=== PATIENT | male | born 1995 | race African-American/Black ===

== ENCOUNTER 2016-08-16 12:02 | Emergency (ER) | payer OTHER ==
[2016-08-16 12:07] VITALS: BP 137/70; PULSE 98; TEMP 97.4; BMI 22.9
[2016-08-16] MEDS ORDERED: MAGNESIUM SULF 50% (8.12 MEQ/2 ML-1 GM VIAL) ONE (12:16)
[2016-08-16] MEDS ORDERED: methylPREDNISolone NA SUCC 125 MG/2 ML VIAL ONE (12:16)
[2016-08-16] MEDS ORDERED: ALBUTEROL SO4 2.5/IPRATROPIUM 0.5 INH SOL 3 ML VIAL.NEB. NEB ONE (12:19)
--- NOTE | 2016-08-16 12:31 | PDOC ---
History of Present Illness - General History Source: Patient Exam Limitations: No Limitations - History of Present Illness Initial Comments: 08/16/16 12:37 The patient is a 21 year old male with significant past medical history of asthma who presents to the emergency department with shortness of breath since this morning. The patient was out shoveling for several hours when he suddenly had chest pressure pain in his chest and shortness of breath. He went to one knee to help alleviate some of his SOB and he fell over. He denies any head trauma or other injuries from the fall. The patient was given multiple treatments in the ambulance on the way to the ER and states he is feeling much better. He currently denies any SOB or chest pain. No fevers or chills. <Isabell Wright - Last Filed: 08/16/16 12:37> <Karen Millan - Last Filed: 08/18/16 07:40> - General Chief Complaint: Asthma Stated Complaint: Asthma Time Seen by Provider: 08/16/16 12:20 Past History <Isabell Wright - Last Filed: 08/16/16 12:37> - Past Medical History Asthma: Yes GI Disorders: Yes (ACID REFLUX.) - Immunization History Immunization Up to Date: Yes - Psycho/Social/Smoking Cessation Hx Anxiety: No Suicidal Ideation: No Smoking History: Never smoked Information on smoking cessation initiated: No Hx Alcohol Use: No Drug/Substance Use Hx: No Substance Use Type: None <Karen Millan - Last Filed: 08/18/16 07:40> - Past Medical History Allergies/Adverse Reactions: Allergies Allergy/AdvReac Type Severity Reaction Status Date / Time No Known Allergies Allergy Verified 08/16/16 12:08 Home Medications: Ambulatory Orders Albuterol Sulfate Inhaler - [Ventolin HFA Inhaler -] 1 - 2 inh PO QID #1 inhaler 08/16/16 Albuterol Sulfate Inhaler - [Ventolin Hfa Inhaler -] 1 - 2 inh PO QID PRN Prednisone [Deltasone -] 40 mg PO DAILY #6 tablet 08/16/16 Review of Systems - Review of Systems Able to Perform ROS?: Yes Comments:: 08/16/16 12:37 GENERAL/CONSTITUTIONAL: No fever or chills. No weakness. HEAD, EYES, EARS, NOSE AND THROAT: No change in vision. No ear pain or discharge. No sore throat. CARDIOVASCULAR: +Chest pain, +SOB. RESPIRATORY: No cough, wheezing, or hemoptysis. GASTROINTESTINAL: No nausea, vomiting, diarrhea or constipation. GENITOURINARY: No dysuria, frequency, or change in urination. MUSCULOSKELETAL: No joint or muscle swelling or pain. No neck or back pain. SKIN: No rash NEUROLOGIC: No headache, vertigo, loss of consciousness, or change in strength/ sensation. ENDOCRINE: No increased thirst. No abnormal weight change. HEMATOLOGIC/LYMPHATIC: No anemia, easy bleeding, or history of blood clots. ALLERGIC/IMMUNOLOGIC: No hives or skin allergy. <Isabell Wright - Last Filed: 08/16/16 12:37> *Physical Exam - Vital Signs Last Vital Signs Temp Pulse Resp BP Pulse Ox 97.4 F L 98 H 18 137/70 100 08/16/16 12:03 08/16/16 12:03 08/16/16 12:03 08/16/16 12:03 08/16/16 12:03 - Physical Exam Comments: 08/16/16 12:38 GENERAL: Awake, alert, and fully oriented, in no acute distress HEAD: No signs of trauma EYES: PERRLA, EOMI, sclera anicteric, conjunctiva clear ENT: Auricles normal inspection, hearing grossly normal, nares patent, oropharynx clear without exudates. Moist mucosa NECK: Normal ROM, supple, no lymphadenopathy, JVD, or masses LUNGS: Breath sounds equal, clear to auscultation bilaterally. No wheezes, and no crackles HEART: Regular rate and rhythm, normal S1 and S2, no murmurs, rubs or gallops ABDOMEN: Soft, nontender, normoactive bowel sounds. No guarding, no rebound. No masses EXTREMITIES: Normal range of motion, no edema. No clubbing or cyanosis. No cords, erythema, or tenderness NEUROLOGICAL: Cranial nerves II through XII grossly intact. Normal speech, normal gait SKIN: Warm, Dry, normal turgor, no rashes or lesions noted. <KyleIsabell - Last Filed: 08/16/16 12:37> - Vital Signs Last Vital Signs Temp Pulse Resp BP Pulse Ox 97.4 F L 98 H 18 137/70 100 08/16/16 12:03 08/16/16 12:03 08/16/16 12:03 08/16/16 12:03 08/16/16 12:03 <Karen Millan - Last Filed: 08/18/16 07:40> Medical Decision Making - Medical Decision Making Patient's symptoms resolved with solu-medrol and duonebs given by EMS prior to arrival. Lungs are clear. Likely cold-induced vs exercise-induced asthma. Stable for DC home. <Karen Millan - Last Filed: 08/18/16 07:40> *DC/Admit/Observation/Transfer - Attestations Scribe Attestion: 08/16/16 12:38 Documentation prepared by Isabell Wright, acting as medical operations supervisor for Karen Millan MD. <Isabell Wright - Last Filed: 08/16/16 12:37> - Discharge Dispostion Admit: No <Karen Millan - Last Filed: 08/18/16 07:40> Diagnosis at time of Disposition: Asthma attack - Discharge Dispostion Disposition: HOME Condition at time of disposition: Improved - Prescriptions Prescriptions: Prednisone [Deltasone -] 40 mg PO DAILY #6 tablet Albuterol Sulfate Inhaler - [Ventolin HFA Inhaler -] 1 - 2 inh PO QID #1 inhaler - Referrals Referrals: Miguelangel Benjamin [Primary Care Provider] - - Patient Instructions Printed Discharge Instructions: DI for Asthma -- Adult
== END 2016-08-16 12:39 | disposition home or self-care (01) ==
LOC: JER 12:02
DX: J45.901 Unspecified asthma with (acute) exacerbation (principal); K21.9 Gastro-esophageal reflux disease without esophagitis
CPT/HCPCS: 99283-25

== ENCOUNTER 2016-10-02 10:19 | Emergency (ER) | payer BC, OTHER ==
[2016-10-02 10:29] VITALS: BP 126/72; PULSE 53; TEMP 98.1; BMI 24.4
--- NOTE | 2016-10-02 11:19 | PDOC ---
History of Present Illness - General Chief Complaint: Asthma Stated Complaint: SOB,ASTHMA EXACERBATION Time Seen by Provider: 10/02/16 11:13 History Source: Patient Exam Limitations: No Limitations - History of Present Illness Initial Comments: CHIEF COMPLAINT: 21 y/o afebrile male with PMH asthma c/o shortness of breath. HISTORY OF PRESENT ILLNESS: The patient states he ran out of his asthma inhaler yesterday and has some SOB today. He would like a treatment and an inhaler sent to his pharmacy. He would also like to be checked for STDs, although he has no symptoms. Vital signs on arrival are within normal limits. REVIEW OF SYSTEMS: GENERAL/CONSTITUTIONAL: No fever/chills. No weakness. No weight change. HEAD, EYES, EARS, NOSE AND THROAT: No change in vision. No ear pain or discharge. No sore throat. CARDIOVASCULAR: +SOB. No chest pain. RESPIRATORY: No cough, wheezing, or hemoptysis. GASTROINTESTINAL: No abd pain, nausea, vomiting, diarrhea. GENITOURINARY: No dysuria, frequency, or change in urination. MUSCULOSKELETAL: No joint or muscle swelling or pain. No neck or back pain. SKIN: No rash or easy bruising. NEUROLOGIC: No headache, vertigo, loss of consciousness, or loss of sensation. PHYSICAL EXAM: GENERAL: The patient is awake, alert, and fully oriented, in no acute distress. HEAD: Normal with no signs of trauma. ENT: Pupils equal, round and reactive to light, extraocular movements intact, sclera anicteric, conjunctiva clear. Neck supple. LUNGS: Clear to auscultation bilaterally. Normal excursion. No respiratory distress or use of accessory muscles. CV: RRR, S1/S2, no MRG. Cap refill < 2 sec. ABDOMEN: Soft, non-distended, non-tender even to deep palpation, no hepatomegaly or splenomegaly, no masses. EXTREMITIES: Normal range of motion, no edema. NEUROLOGICAL: Normal speech, normal gait. CN II-XII grossly intact. PSYCH: Normal mood, normal affect. SKIN: Warm, dry, normal turgor, no rashes or lesions noted. Past History - Past Medical History Allergies/Adverse Reactions: Allergies Allergy/AdvReac Type Severity Reaction Status Date / Time No Known Allergies Allergy Verified 08/16/16 12:08 Home Medications: Ambulatory Orders Albuterol Sulfate Inhaler - [Ventolin HFA Inhaler -] 1 - 2 inh PO Q4H #1 inhaler 10/02/16 Asthma: Yes GI Disorders: Yes (ACID REFLUX.) - Immunization History Immunization Up to Date: Yes - Psycho/Social/Smoking Cessation Hx Anxiety: No Suicidal Ideation: No Smoking History: Never smoked Hx Alcohol Use: No Drug/Substance Use Hx: No Substance Use Type: None *Physical Exam - Vital Signs Last Vital Signs Temp Pulse Resp BP Pulse Ox 98.1 F 53 L 19 126/72 97 10/02/16 10:25 10/02/16 10:25 10/02/16 10:25 10/02/16 10:25 10/02/16 10:25 Medical Decision Making - Medical Decision Making A/P: 21 y/o afebrile male with SOB after running out of his albuterol inhaler yesterday. He is also here for STD check. Plan is as follows: 1. Duoneb 2. GC/chlamydia Will send rx for albuterol inhaler to pharmacy. Informed the patient we will call him with STD results in 48-72 hours. Pt instructed to refrain from sexual intercourse until results are back and return to the ER with any worsening or concerning symptoms. The patient verbalizes understanding of all instructions, has no further questions and is awaiting discharge. *DC/Admit/Observation/Transfer Diagnosis at time of Disposition: Screen for STD (sexually transmitted disease) Asthma Qualifiers: Asthma severity: unspecified severity Asthma complication type: uncomplicated Qualified Code(s): J45.909 - Unspecified asthma, uncomplicated - Discharge Dispostion Disposition: HOME Condition at time of disposition: Good - Patient Instructions Printed Discharge Instructions: Asthma -- Adult, How to Detect and Treat STDs Additional Instructions: Discharge Instructions: -Use albuterol inhaler as prescribed for asthma symptoms -Someone from the ER will call you in 48-72 hours with the results of your STD tests; you should not have sex until you receive results -Return to the ER with any worsening or concerning symptoms.
[2016-10-02] MEDS ORDERED: ALBUTEROL SO4 2.5/IPRATROPIUM 0.5 INH SOL 3 ML VIAL.NEB. NEB ONE ×2 (11:24→11:32)
== END 2016-10-02 11:58 | disposition home or self-care (01) ==
LOC: JERFT 10:19
PROC: 3E0F7GC Introduction of Other Therapeutic Substance into Respiratory Tract, Via Natural or Artificial Opening (ICD-10-PCS; principal; 2016-10-02)
DX: J45.909 Unspecified asthma, uncomplicated (principal); Z11.3 Encounter for screening for infections with a predominantly sexual mode of transmission
CPT/HCPCS: 36415; 87491; 87591; 99281-25

== ENCOUNTER 2017-04-23 11:26 | Emergency (ER) | payer OTHER, BC ==
[2017-04-23 11:58] VITALS: BP 114/71; PULSE 66; TEMP 98.4; BMI 23.5
[2017-04-23] MEDS ORDERED: KETOROLAC TROMETHAMINE 60 MG/2 ML VIAL IM ONE (13:13)
[2017-04-23] MEDS ORDERED: KETOROLAC TROMETHAMINE 60 MG/2 ML VIAL ONE (13:15)
--- NOTE | 2017-04-23 13:35 | PDOC ---
History of Present Illness - General Chief Complaint: Pain Stated Complaint: NECK/BACK PAIN Time Seen by Provider: 04/23/17 12:53 - History of Present Illness Initial Comments: 04/23/17 13:29 CHIEF COMPLAINT: back pain HISTORY OF PRESENT ILLNESS: 22 yo M with hx of asthma and GERD presents to fast Appetise with pain to lower back s/p injury at work. Patient states he was "throwing out heavy garbage bags" while working and felt that he pulled something in his back. He denies any loss of sensation to his lower extremities or any loss of bowel or bladder function. PAST MEDICAL HISTORY: Denies past medical history FAMILY HISTORY: Denies SOCIAL HISTORY: Denies tobacco, alcohol, illicit drug use. SURGICAL HISTORY: Denies ALLERGIES: No known drug allergies REVIEW OF SYSTEMS General/Constitutional: Denies fever or chills. Denies weakness, weight change. HEENT: Denies change in vision. Denies ear pain or discharge. Denies sore throat. Cardiovascular: Denies chest pain or shortness of breath. Respiratory: Denies cough, wheezing, or hemoptysis. Gastrointestinal: Denies nausea, vomiting, diarrhea or constipation. Denies rectal bleeding. Genitourinary: Denies dysuria, frequency, or change in urination. Musculoskeletal: Mid lower back pain. Denies joint or muscle swelling or pain. Skin: Denies rash or easy bruising. Neurologic: Denies headache, vertigo, loss of consciousness, or loss of sensation. PHYSICAL EXAM General Appearance: Well-appearing, appropriately dressed. No apparent distress. HEENT: EOMI, PERRLA. No conjunctival pallor. No photophobia, scleral icterus. Respiratory/Chest: Lungs CTAB. Cardiovascular: RRR. S1, S2. Gastrointestinal/Abdominal: Normal bowel sounds. Abdomen soft, non-distended. No tenderness or rebound tenderness. Musculoskeletal/Extremities: Normal inspection. FROM of all extremities, normal capillary refill. Pelvis Stable. No CVA tenderness. No tenderness to extremities, pedal edema, swelling, erythema or deformity. Integumentary: Appropriate color, dry, warm. No cyanosis, erythema, jaundice or rash Neurologic: antisqueak filler II-XII intact. Fully oriented, alert. Appropriate mood/affect. Motor strength 5/5. No appreciable EOM palsy, facial droop or sensory deficit. Past History - Past Medical History Allergies/Adverse Reactions: Allergies Allergy/AdvReac Type Severity Reaction Status Date / Time No Known Allergies Allergy Verified 04/23/17 11:54 Home Medications: Ambulatory Orders Cyclobenzaprine HCl [Flexeril -] 10 mg PO HS #7 tablet 04/23/17 Naproxen [Naprosyn -] 250 mg PO BID #14 tablet 04/23/17 Asthma: Yes COPD: No GI Disorders: Yes (ACID REFLUX.) - Immunization History Immunization Up to Date: Yes - Suicide/Smoking/Psychosocial Hx Smoking History: Never smoked Information on smoking cessation initiated: No Hx Alcohol Use: No Drug/Substance Use Hx: No Substance Use Type: None *Physical Exam - Vital Signs Last Vital Signs Temp Pulse Resp BP Pulse Ox 98.4 F 66 18 114/71 100 04/23/17 11:55 04/23/17 11:55 04/23/17 11:55 04/23/17 11:55 04/23/17 11:55 ED Treatment Course - Medications Given in the ED: ED Medications Discontinued Medications Generic Name Dose Route Start Last Admin Trade Name Warren PRN Reason Stop Dose Admin Ketorolac Tromethamine 60 mg 04/23/17 13:13 04/23/17 13:18 Toradol Injection - IM 04/23/17 13:14 60 mg ONCE ONE Administration Medical Decision Making - Medical Decision Making 04/23/17 13:33 22 yo M with hx of asthma and GERD presents to [facility] with pain to lower back s/p injury at work. VSS. Patient is well-appearing with normal gait, sensory discrimination intact to all extremities. -60 mg Toradol Patient reevaluated after administration of medication. -naproxen, cyclobenzaprine rxs sent to pharm Advised patient to take medication as prescribed and follow up with orthopedics if symptoms persist past 3-5 days. Advised patient of signs and symptoms for return to ED. Patient verbalized understanding and agrees to plan. *DC/Admit/Observation/Transfer Diagnosis at time of Disposition: Back pain Qualifiers: Back pain location: low back pain Chronicity: acute Back pain laterality: midline Sciatica presence: without sciatica Qualified Code(s): M54.5 - Low back pain - Discharge Dispostion Disposition: HOME Condition at time of disposition: Stable Admit: No - Prescriptions Prescriptions: Cyclobenzaprine HCl [Flexeril -] 10 mg PO HS #7 tablet Naproxen [Naprosyn -] 250 mg PO BID #14 tablet - Referrals Referrals: Jim Palacios MD [Primary Care Provider] - - Patient Instructions Printed Discharge Instructions: DI for Low Back Pain Additional Instructions: Please take medications as prescribed; as discussed, do NOT drive, drink alcohol or operate machinery while taking cyclobenzaprine. Follow up with orthopedics if your symptoms persist past 3-5 days. If you develop any loss of sensation to your legs, any loss of bowel or bladder function, or any new or worsening symptoms, please return to the ER. - Post Discharge Activity Forms/Work/School Notes: Back to Work
== END 2017-04-23 13:40 | disposition home or self-care (01) ==
LOC: JERFT 11:26
PROC: 3E0233Z Introduction of Anti-inflammatory into Muscle, Percutaneous Approach (ICD-10-PCS; principal; 2017-04-23)
DX: M54.5 Low back pain (principal)
CPT/HCPCS: 99281-25

== ENCOUNTER 2020-02-06 10:47 | Emergency (ER) | payer OTHER ==
[2020-02-06 10:51] VITALS: BP 109/58; PULSE 74; TEMP 98.3; BMI 25.2
--- NOTE | 2020-02-06 11:11 | PDOC ---
History of Present Illness - General Chief Complaint: Eye Problem Stated Complaint: LFT EYE INJURY Time Seen by Provider: 02/06/20 11:02 History Source: Patient Exam Limitations: No Limitations - History of Present Illness Initial Comments: 02/06/20 11:07 24-year-old male presents to ED with irritation to his left eye since yesterday. 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 Patient states eyes now red and feels itchy. Patient states has been using Clear Eyes with no improvement. Patient also requesting to be tested for strep since his son was just diagnosed and has mild irritation with swallowing. Patient has no other complaints patient has no medical history. Is this a multiple visit Asthma Patient?: No Timing/Duration: 24 hours Severity: mild Associated Symptoms: reports: other Past History - Travel History Traveled outside of the country in the last 30 days: No Close contact w/someone who was outside of country & ill: No - Medical History Allergies/Adverse Reactions: Allergies Allergy/AdvReac Type Severity Reaction Status Date / Time No Known Allergies Allergy Verified 04/23/17 11:54 Home Medications: Ambulatory Orders Cyclobenzaprine HCl [Flexeril -] 10 mg PO HS #7 tablet 04/23/17 Naproxen [Naprosyn -] 250 mg PO BID #14 tablet 04/23/17 Erythromycin 0.5% Eye Ointment [Erythromycin 0.5% Eye Ointment -] 1 applic OS BID #1 tube 02/06/20 Asthma: Yes COPD: No GI Disorders: Yes (ACID REFLUX.) - Immunization History Immunization Up to Date: Yes - Psycho-Social/Smoking History Lives with/in: spouse/SO Smoking History: Never smoked - Substance Abuse Hx (Audit-C & DAST Scrn) How often the patient has a drink containing alcohol: Never Score: In Men: 4 or > Positive; In Women: 3 or > Positive: 0 Screen Result (Pos requires Nsg. Audit-10AR): Negative In the last yr the pt used illegal drug/Rx for NonMed reason: No Score: Yes response is considered Positive: 0 Screen Result (Positive result requires Nsg. DAST-10): Negative Review of Systems - Review of Systems Able to Perform ROS?: No Is the patient limited O[place]i proficient: No Constitutional: No: Symptoms Reported HEENTM: Yes: Eye Pain, Throat Pain Respiratory: No: Symptoms reported Cardiac (ROS): No: Symptoms Reported ABD/GI: No: Symptoms Reported : No: Symptoms Reported Musculoskeletal: No: Symptoms Reported Integumentary: No: Symptoms Reported Neurological: No: Headache *Physical Exam - Vital Signs Last Vital Signs Temp Pulse Resp BP Pulse Ox 98.3 F 74 20 109/58 L 100 02/06/20 10:48 02/06/20 10:48 02/06/20 10:48 02/06/20 10:48 02/06/20 10:48 - Physical Exam General Appearance: Yes: Nourished, Appropriately Dressed. No: Apparent Distress HEENT: positive: EOMI, ANCELMO, TMs Normal, Pharynx Normal, Other (Noted erythema to left sclera conjunctiva intact.) Neck: positive: Supple Respiratory/Chest: negative: Respiratory Distress Gastrointestinal/Abdominal: negative: Distended Extremity: positive: Normal Inspection Integumentary: positive: Normal Color Neurologic: positive: Motor Strength 5/5 (Ambulatory) Medical Decision Making - Medical Decision Making 02/06/20 11:09 Chief complaint: Left eye redness and itching since yesterday after having fluids land in his eye. Exam: Patient with erythema to left sclera no erythema to posterior soft palate. Plan: Strep ordered will discharge home with erythromycin ointment for his eye 02/06/20 19:02 Laboratory Tests 02/06/20 11:00 Group A Strep Rapid Positive Pt ordered for amoxicillin Discharge - Discharge Information Problems reviewed: Yes Clinical Impression/Diagnosis: Irritation of left eye Condition: Good Disposition: HOME - Additional Discharge Information Prescriptions: Erythromycin 0.5% Eye Ointment [Erythromycin 0.5% Eye Ointment -] 1 applic OS BID #1 tube - Follow up/Referral Referrals: Max Austin MD [Primary Care Provider] - - Patient Discharge Instructions Patient Printed Discharge Instructions: DI for Conjunctivitis Additional Instructions: Please do not place anything into your eye except for the ointment I have prescribed. Do not rub area and wash hands frequently. You will be notified if your strep is positive. - Post Discharge Activity Work/Back to School Note: Back to Work
== END 2020-02-06 11:15 | disposition home or self-care (01) ==
LOC: JERFT 10:47
DX: H57.12 Ocular pain, left eye (principal)
CPT/HCPCS: 87880; 99283-25

== ENCOUNTER 2021-08-08 21:37 | Emergency (ER) | payer BC ==
[2021-08-08 21:49] VITALS: BMI 28.6
[2021-08-08] MEDS ORDERED: IBUPROFEN 600 MG TABLET (FP) PO ONE ×2 (22:38→22:47)
[2021-08-08 23:37] VITALS: BP 110/76; PULSE 90; TEMP 99
[2021-08-10 10:08] LABS: SARS-CoV-2 NAA Not Detected (Not Detected)
== END 2021-08-08 23:37 | disposition home or self-care (01) ==
LOC: JER 21:37
DX: R51.9 Headache, unspecified (principal); M79.10 Myalgia, unspecified site; R50.9 Fever, unspecified
CPT/HCPCS: 87651; 87804; 99283-25; C9803; U0003; U0005

== ENCOUNTER 2022-04-01 09:28 | Emergency (ER) | payer BC ==
[2022-04-01 09:38] VITALS: BP 123/69; PULSE 78; RESP 18; TEMP 97.8; BMI 28.3
== END 2022-04-01 11:27 | disposition home or self-care (01) ==
LOC: JERFT 09:28 → JER 09:28 → JERFT 11:27
DX: T58.91XA Toxic effect of carbon monoxide from unspecified source, accidental (unintentional), initial encounter (principal)
CPT/HCPCS: 82375; 99283-25

== ENCOUNTER 2023-10-20 23:51 | Emergency (ER) | payer OTHER ==
[2023-10-20 23:55] VITALS: BP 109/72; PULSE 75; RESP 18; TEMP 98.4; BMI 28.3
[2023-10-21] MEDS ORDERED: ACETAMINOPHEN 325 MG TABLET (FP) ONE (01:50)
[2023-10-21] MEDS: ACETAMINOPHEN 325 MG TABLET (FP) PO ONE (01:51)
== END 2023-10-21 02:06 | disposition left against medical advice (07) ==
LOC: JER 23:51
DX: R51.9 Headache, unspecified (principal)
CPT/HCPCS: 99283-25

== ENCOUNTER 2025-01-18 15:12 | Emergency (ER) | payer OTHER ==
[2025-01-18 15:21] VITALS: BP 116/68; PULSE 76; RESP 20; TEMP 97.7; BMI 26.7
[2025-01-18] MEDS ORDERED: CEPHALEXIN MONOHYDRATE 500 MG CAPSULE (UD) ONE (16:01)
[2025-01-18] MEDS ORDERED: IBUPROFEN 600 MG TABLET (FP) PO ONE (16:01)
[2025-01-18] MEDS ORDERED: ACETAMINOPHEN 500 MG TABLET (FP) ONE (16:01)
[2025-01-18] MEDS: CEPHALEXIN 250 MG/5 ML ORAL SUSPENSION PO ONE (16:04)
[2025-01-18] MEDS: IBUPROFEN 600 MG TABLET (FP) PO ONE (16:05)
[2025-01-18] MEDS: ACETAMINOPHEN 500 MG TABLET (FP) PO ONE (16:05)
[2025-01-18 17:07] LABS: HIV INTERPRETATION NEGATIVE (NEGATIVE)
[2025-01-18 19:00] LABS: HCV DIAGNOSTIC IN-HOUSE W/RFLX NON-REACTIVE (NONREACTIVE)
== END 2025-01-18 16:30 | disposition home or self-care (01) ==
LOC: JERFT 15:12
DX: S90.111A Contusion of right great toe without damage to nail, initial encounter (principal); L60.0 Ingrowing nail; W22.8XXA Striking against or struck by other objects, initial encounter; Y99.0 Civilian activity done for income or pay
CPT/HCPCS: 36415; 73660-TC-FY; 86803; 87389; 99284-25